=== PATIENT | female | born 1960 | race Hispanic/Latino ===

== ENCOUNTER 2019-07-04 07:27 | Day surgery (SDC) | payer OTHER ==
[2019-06-27 09:55] VITALS: BP 108/60
[2019-06-27 10:12] LABS: EOSINOPHILS % (AUTO) 3.8 % (0.0-8.0); HEMATOCRIT 46.2 % (36-48); LYMPHOCYTES % (AUTO) 29.6 % (21.0-51.0); MEAN CORPUSCULAR HEMOGLOBIN 32.3 pg (27.0-33.0); MEAN CORPUSCULAR VOLUME 94.9 fL (79-99); MONOCYTES % (AUTO) 8.4 % (3.0-13.0); NEUTROPHILS % (AUTO) 57.2 % (40.0-77.0); PLATELET COUNT (AUTO) 254 K/uL (130-400); RED BLOOD CELL COUNT(AUTO) 4.87 MIL/uL (4.00-5.50); RED CELL DISTRIBUTION WIDTH 12.8 % (11.0-15.5); WHITE BLOOD COUNT (AUTO) 5.8 K/uL (4.8-10.8)
[2019-06-27 10:22] LABS: CREATININE 0.8 mg/dL (0.5-1.5); POTASSIUM 4.1 mmol/L (3.5-5.1)
[2019-07-04] VITALS (18 sets, daily range): BP systolic 94–119; BP diastolic 40–71
[~2019-07-04] VITALS: Ht 162.6 cm; Wt 67.3 kg
[~2019-07-04 07:27] MED LIST: SODIUM CHLORIDE 0.9% 1000ML 1,000 ML IV SCH; VITAMIN C PO; VITAMIN D PO; VITAMIN E PO
[2019-07-04] MEDS ORDERED: BUPIVACAINE/PF 0.5% 30ML VIAL ONE (07:33)
[2019-07-04] MEDS: CEFAZOLIN SODIUM 1 GM VIAL IVP SCH ×2 (08:00→08:40)
[2019-07-04] MEDS ORDERED: ROCURONIUM 10MG/1ML SYR 10 MG/ML ML ONE (08:01)
[2019-07-04] MEDS ORDERED: LIDOCAINE HCL MPF 1% 5ML VIAL ONE (08:01)
[2019-07-04] MEDS ORDERED: FENTANYL CITRATE PF 50 MCG/1 ML 2ML VIAL ONE (08:01)
[2019-07-04] MEDS ORDERED: PROPOFOL 10 MG/ML 20ML VIAL IV ONE (08:01)
[2019-07-04] MEDS ORDERED: MIDAZOLAM HCL 1 MG/ML 2ML VIAL ONE (08:02)
[2019-07-04] MEDS ORDERED: LACTATED RINGERS 1000ML 1,000 ML IV ONE ×2 (08:27→08:29)
[2019-07-04] MEDS ORDERED: GLYCOPYRROLATE 1 MG/5 ML SYRINGE ONE (08:57)
[2019-07-04] MEDS ORDERED: NEOSTIGMINE 5MG/5ML SYR IV ONE (08:57)
[2019-07-04] MEDS ORDERED: DEXAMETHASONE SOD PHOSPHATE 10MG/ML 1ML VIAL ONE (08:57)
[2019-07-04] MEDS ORDERED: ONDANSETRON HCL 4 MG/2 ML VIAL ONE (08:57)
[2019-07-04] MEDS ORDERED: KETOROLAC TROMETHAMINE 30MG/ML ONE (09:15)
[2019-07-04] MEDS ORDERED: MEPERIDINE-PF 25 MG/ML SYG ONE (09:16)
== END 2019-07-04 11:22 | disposition home or self-care (01) ==
LOC: DAH 07:27
PROVIDERS: ATTEND Student in an Organized Health Care Education/Training Program
DX: K80.10 Calculus of gallbladder with chronic cholecystitis without obstruction (principal); K21.9 Gastro-esophageal reflux disease without esophagitis; Z98.51 Tubal ligation status; Z98.890 Other specified postprocedural states
CPT/HCPCS: 36415; 47562; 80048; 85025; 88304; A4215; A4221; A4222; A4223; A4450; A4649 ×4; A4663; A4930; A6206; A6207; A6260; C1769 ×3; J0690; J1100; J1885; J2175; J2250; J2405; J2704; J2710; J3010; J3490 ×3; J7030; J7120 ×2

== ENCOUNTER 2022-02-06 09:32 | Day surgery (SDC) | payer OTHER ==
[2022-02-06] VITALS (7 sets, daily range): BP systolic 96–147; BP diastolic 62–85
[~2022-02-06] VITALS: Ht 157.5 cm; Wt 70.3 kg
[~2022-02-06 09:32] MED LIST changes: -SODIUM CHLORIDE 0.9% 1000ML 1,000 ML IV SCH
[2022-02-06] MEDS ORDERED: ATOR10TA69 PO (11:00)
[2022-02-06] MEDS ORDERED: 0.9%NACL 1000ML 1,000 ML IV ONE (11:02)
[2022-02-06] MEDS ORDERED: PHENYLEPHRINE HCL 10 MG/ML 1ML VIAL IV ONE (12:54)
[2022-02-06] MEDS ORDERED: PROPOFOL 10 MG/ML 20ML VIAL IV ONE (12:54)
[2022-02-06] MEDS ORDERED: SUCCINYLCHOLINE 200MG/10ML SYR ONE (12:54)
[2022-02-06] MEDS ORDERED: LIDOCAINE PF 100MG/5ML (2%) SYRINGE 5ML ONE (12:58)
== END 2022-02-06 14:06 | disposition home or self-care (01) ==
LOC: ENDO 09:32
PROVIDERS: ATTEND Internal Medicine Gastroenterology
DX: R10.13 Epigastric pain (principal); K76.89 Other specified diseases of liver; R10.11 Right upper quadrant pain; K29.50 Unspecified chronic gastritis without bleeding; K29.00 Acute gastritis without bleeding; K21.00 Gastro-esophageal reflux disease with esophagitis, without bleeding; K76.0 Fatty (change of) liver, not elsewhere classified; K74.02 Hepatic fibrosis, advanced fibrosis; Z86.010 Personal history of colon polyps; Z98.51 Tubal ligation status; Z83.3 Family history of diabetes mellitus; Z80.42 Family history of malignant neoplasm of prostate
CPT/HCPCS: 43239; 87635; A4215 ×2; A4221; A4222; A4223; A4606; A4620; A4663; J0330; J2001; J2370; J2704; J7030